=== PATIENT | female | born 1960 | race Caucasian/White ===

== ENCOUNTER 2017-05-09 10:32 | Day surgery (SDC) | payer OTHER ==
[~2017-05-09] VITALS: Ht 160 cm; Wt 46.2 kg
[~2017-05-09 10:32] MED LIST: PRED20TA PO
[2017-05-09] MEDS ORDERED: NS 1,000 ML IV ONE (11:00)
[2017-05-09] MEDS ORDERED: PROPOFOL 200 MG/20 ML VIAL As Ordered ONE (12:23)
[2017-05-09] MEDS ORDERED: LIDOCAINE 2% INJ 100 MG/5 ML SDV (FOR ANES.) As Ordered ONE (12:23)
--- NOTE | 2017-05-09 13:26 | ROOR ---
Patient Name: Elva Romano Procedure Date: 05/09/2017 12:36 PM Date of : 1960 Age: 56 Room: [facility] Gender: Female Note Status: Finalized Procedure: Colonoscopy Indications: High risk colon cancer surveillance: Personal history of colonic polyps Providers: Charles Hunter MD Referring MD: DARIA MENDES MD Requesting Provider: Medicines: Monitored Anesthesia Care Complications: No immediate complications. Procedure: Pre-Anesthesia Assessment: - Prior to the procedure, a History and Physical was performed, and patient medications and allergies were reviewed. The patient is competent. The risks and benefits of the procedure and the sedation options and risks were discussed with the patient. All questions were answered and informed consent was obtained. Patient identification and proposed procedure were verified by the physician, the nurse and the processing rep in the procedure room. Mental Status Examination: alert and oriented. Airway Examination: normal oropharyngeal airway and neck mobility. Respiratory Examination: clear to auscultation. CV Examination: normal. Prophylactic Antibiotics: The patient does not require prophylactic antibiotics. Prior Anticoagulants: The patient has taken no previous anticoagulant or antiplatelet agents. ASA Grade Assessment: II - A patient with mild systemic disease. After reviewing the risks and benefits, the patient was deemed in satisfactory condition to undergo the procedure. The anesthesia plan was to use monitored anesthesia care (MAC). Immediately prior to administration of medications, the patient was re-assessed for adequacy to receive sedatives. The heart rate, respiratory rate, oxygen saturations, blood pressure, adequacy of pulmonary ventilation, and response to care were monitored throughout the procedure. The physical status of the patient was re-assessed after the procedure. The Colonoscope was introduced through the anus and advanced to the terminal ileum, with identification of the appendiceal orifice and IC valve. The colonoscopy was performed without difficulty. The patient tolerated the procedure well. The quality of the bowel preparation was good. The terminal ileum, ileocecal valve, appendiceal orifice, and rectum were photographed. Scope insertion time was 4 minutes. Scope withdrawal time was 9 minutes. The total duration of the procedure was 13 minutes. Findings: The perianal and digital rectal examinations were normal. A diminutive polyp was found in the cecum. The polyp was sessile. The polyp was removed with a cold biopsy forceps. Resection and retrieval were complete. Verification of patient identification for the specimen was done by the physician and nurse using the patient's name, date and medical record number. Estimated blood loss was minimal. Many small and large-mouthed diverticula were found in the sigmoid colon. Estella-diverticular erythema was seen. The exam was otherwise without abnormality on direct and retroflexion views. Impression: - One diminutive polyp in the cecum, removed with a cold biopsy forceps. Resected and retrieved. - Mild diverticulosis in the sigmoid colon. Estella-diverticular erythema was seen. - The examination was otherwise normal on direct and retroflexion views. Recommendation: - Patient has a contact number available for emergencies. The signs and symptoms of potential delayed complications were discussed with the patient. Return to normal activities tomorrow. Written discharge instructions were provided to the patient. - High fiber diet. - Continue present medications. - Await pathology results. - Repeat colonoscopy in 5 years for surveillance based on pathology results. - Telephone GI clinic for pathology results in 1 week. - Return to GI clinic in 5 years. - Return to primary care physician. Charles Hunter MD Charles Hunter MD 05/09/2017 1:25:57 PM This report has been signed electronically. Number of Addenda: 0 Note Initiated On: 05/09/2017 12:36 PM Estimated Blood Loss: Estimated blood loss was minimal.
[2017-05-09 13:41] VITALS: BP 107/67
== END 2017-05-09 13:44 | disposition home or self-care (01) ==
LOC: M OPP 10:32
PROVIDERS: ATTEND Internal Medicine Gastroenterology
DX: Z12.11 Encounter for screening for malignant neoplasm of colon (principal); Z86.010 Personal history of colon polyps; D12.0 Benign neoplasm of cecum; K63.89 Other specified diseases of intestine; K57.30 Diverticulosis of large intestine without perforation or abscess without bleeding; R00.2 Palpitations; M51.9 Unspecified thoracic, thoracolumbar and lumbosacral intervertebral disc disorder; M35.3 Polymyalgia rheumatica; Z88.8 Allergy status to other drugs, medicaments and biological substances; Z79.899 Other long term (current) drug therapy

== ENCOUNTER → 2019-01-31 | Outpatient (REF) | payer SELFPAY | LOC: M LAB REF 09:46 | PROVIDERS: ATTEND Surgery | DX: D17.1 Benign lipomatous neoplasm of skin and subcutaneous tissue of trunk (principal) ==

== ENCOUNTER → 2019-07-22 | Outpatient (REF) | payer SELFPAY | LOC: M LAB REF 11:17 | PROVIDERS: ATTEND Nurse Practitioner Adult Health | DX: Z12.4 Encounter for screening for malignant neoplasm of cervix (principal) | CPT/HCPCS: 87624; G0123 ==

== ENCOUNTER 2023-01-09 11:30 | Day surgery (SDC) | payer SELFPAY ==
[~2023-01-09] VITALS: Ht 160 cm; Wt 48.0 kg
[~2023-01-09 11:30] MED LIST changes: +ALEN70TA82; +NS 1,000 ML IV ONE; +OMEP-173 PO; +THERTAB52 PO; +VITA100093 PO; +VITA500C24 PO
[2023-01-09] MEDS ORDERED: LIDOCAINE 2% 100MG/5ML SDV (FOR ANES.) As Ordered ONE (12:50)
[2023-01-09] MEDS ORDERED: propofoL 500 MG/50 ML VIAL As Ordered ONE (12:50)
[2023-01-09] MEDS ORDERED: fentaNYL 100 MCG/2 ML INJECTION As Ordered ONE (12:50)
[2023-01-09 13:32] VITALS: TEMP 98.5
[2023-01-09 13:35] VITALS: BP 114/55; O2SAT 99
== END 2023-01-09 14:06 | disposition home or self-care (01) ==
LOC: M OPP 11:30
PROVIDERS: ATTEND Internal Medicine Gastroenterology
DX: Z12.11 Encounter for screening for malignant neoplasm of colon (principal); Z86.010 Personal history of colon polyps; K63.5 Polyp of colon; K57.30 Diverticulosis of large intestine without perforation or abscess without bleeding; K64.4 Residual hemorrhoidal skin tags; K64.8 Other hemorrhoids; K29.70 Gastritis, unspecified, without bleeding; K20.90 Esophagitis, unspecified without bleeding; Z79.83 Long term (current) use of bisphosphonates; Z79.899 Other long term (current) drug therapy; Z88.8 Allergy status to other drugs, medicaments and biological substances
CPT/HCPCS: 43239; 45385; 88305; J3010